=== PATIENT | female | born 1990 | race African-American/Black ===

== ENCOUNTER 2017-02-22 19:21 | Emergency (ER) | payer OTHER ==
[~2017-02-22] VITALS: Ht 167.6 cm; Wt 59.0 kg
[~2017-02-22 19:21] MED LIST: BACTRIM DS TAB1 EACH PO; IBUPROFEN 600600 M1 PO; IBUPROFEN 800800 MG PO; MACROBID 100 M100 M1 PO; NOHOMEMEDICATIONS; PHENERGAN 25 MG25 M1 PO; PYRIDIUM200 MG PO; ZPAK PO
[2017-02-22] MEDS ORDERED: VITAFOL-OB+DHA1 EACH PO (19:34)
[2017-02-22 19:54] LABS: URINE BILIRUBIN NEGATIVE (Negative); URINE BLOOD NEGATIVE (Negative); URINE COLOR YELLOW; URINE GLUCOSE-RANDOM* NEGATIVE (Negative); URINE KETONES NEGATIVE (Negative); URINE PROTEIN (DIPSTICK) NEGATIVE (Negative); URINE UROBILINOGEN 0.2 E.U./dl (0.2-1.0)
[2017-02-22 19:55] LABS: URINE LEUKOCYTES-REFLEX 2+ (Negative)
[2017-02-22 20:09] LABS: CASTS None Seen /LPF (None Seen); CRYSTALS None Seen /LPF (None Seen); SQUAMOUS 0-3 Few /LPF (0-3); URINE RBC None Seen /HPF (0-2); URINE WBC-REFLEX 6-15 Few /HPF (0-5)
[2017-02-22] MEDS ORDERED: FLAGYL500 MG PO (21:06)
[2017-02-22 21:14] VITALS: BP 97/55
[2017-02-23 17:13] LABS: CHLAMYDIA TRACHOMATIS-PCR Negative (Negative); NEISSERIA GONORRHEA-PCR Negative (Negative)
== END 2017-02-22 21:14 | disposition home or self-care (01) ==
LOC: ER 19:21
PROVIDERS: Physician Assistant
DX: O98.812 Other maternal infectious and parasitic diseases complicating pregnancy, second trimester (principal); A59.01 Trichomonal vulvovaginitis; N89.8 Other specified noninflammatory disorders of vagina; Z3A.15 15 weeks gestation of pregnancy